=== PATIENT | female | born 1950 | race Caucasian/White ===

== ENCOUNTER 2016-05-22 12:14 | Outpatient (CLI) ==
[2016-05-22 12:51] LABS: BASOPHILS % (AUTO) 0.8 % (0.0-3.0); EOSINOPHILS # (AUTO) 0.1 K/ul (0.0-0.7); EOSINOPHILS % (AUTO) 2.7 % (0.0-7.0); HEMATOCRIT 35.6 % (37.0-47.0); HEMOGLOBIN 11.9 g/dl (12.0-16.0); IMMATURE GRANULOCYTE % (AUTO) 0.2 % (0.0-5.0); LYMPHOCYTES # (AUTO) 2.1 K/uL (0.60-3.4); LYMPHOCYTES % (AUTO) 40.3 (10.0-50.0); MEAN CORPUSCULAR HEMOGLOBIN 30.2 pg (27.0-31.0); MEAN CORPUSCULAR HGB CONC 33.4 (31.8-35.4); MEAN CORPUSCULAR VOLUME 90.4 fl (81.0-99.0); MONOCYTES # (AUTO) 0.4 K/uL (0.4-2.0); MONOCYTES % (AUTO) 8.1 (0-10); NEUTROPHILS # (AUTO) 2.5 K/ul (2.0-6.9); NEUTROPHILS % (AUTO) 47.9; PLATELET COUNT 286 10^3/uL (140-440); RED BLOOD COUNT 3.94 10^6/ul (4.20-5.40); WHITE BLOOD COUNT 5.16 K/ul (4.6-10.2)
[2016-05-22 13:00] LABS: ALBUMIN 4.1 g/dL (3.4-5.0); ALBUMIN/GLOBULIN RATIO 1.08; ANION GAP 14.8; BILIRUBIN,TOTAL 0.51 mg/dL (0.00-1.20); BILIRUBIN,URINE Negative (NEGATIVE); BUN/CREATININE RATIO 18.75; CALCIUM 9.8 mg/dL (8.2-10.2); CHOL/HDL RATIO 4.9 (4.5-5.5); CREATININE 0.8 mg/dL (0.60-1.30); KETONES,URINE Negative (NEGATIVE); LEUKOCYTE ESTERASE ,URINE 2+ (NEGATIVE); NITRITE,URINE Negative (NEGATIVE); PH,URINE 5.5 (5-9); POTASSIUM 3.8 mmol/L (3.5-5.10); PROTEIN,URINE Negative (NEGATIVE); TOTAL PROTEIN 7.9 g/dL (5.8-8.1); URINE, BLOOD Negative (NEGATIVE)
[2016-05-22 13:05] LABS: ADD URINE MICROSCOPIC YES
[2016-05-22 13:07] LABS: BACTERIA,URINE 1+ (NOT PRESENT)
== END 2016-05-22 12:15 | disposition home or self-care (01) ==
LOC: LAB 12:14
PROVIDERS: ATTEND General Practice
DX: E78.5 Hyperlipidemia, unspecified (principal); I10 Essential (primary) hypertension; R73.09 Other abnormal glucose; Z79.899 Other long term (current) drug therapy
CPT/HCPCS: 36415; 80053; 80061; 81001; 83036; 85025; 87086

== ENCOUNTER 2016-09-21 09:27 | Outpatient (CLI) | payer OTHER ==
[2016-09-21 13:20] LABS: BASOPHILS # (AUTO) 0.1 K/uL (0-0.2); EOSINOPHILS # (AUTO) 0.1 K/ul (0.0-0.7); HEMATOCRIT 36.1 % (37.0-47.0); HEMOGLOBIN 12.2 g/dl (12.0-16.0); IMMATURE GRANULOCYTE % (AUTO) 0.2 % (0.0-5.0); LYMPHOCYTES # (AUTO) 1.4 K/uL (0.60-3.4); MEAN CORPUSCULAR HEMOGLOBIN 30.7 pg (27.0-31.0); MEAN CORPUSCULAR HGB CONC 33.8 (31.8-35.4); MEAN CORPUSCULAR VOLUME 90.7 fl (81.0-99.0); MONOCYTES # (AUTO) 0.3 K/uL (0.4-2.0); MONOCYTES % (AUTO) 5.4 (0-10); NEUTROPHILS # (AUTO) 3.2 K/ul (2.0-6.9); NEUTROPHILS % (AUTO) 63.4; PLATELET COUNT 248 10^3/uL (140-440); RED BLOOD COUNT 3.98 10^6/ul (4.20-5.40); WHITE BLOOD COUNT 4.97 K/ul (4.6-10.2)
[2016-09-21 13:46] LABS: ALBUMIN 3.9 g/dL (3.4-5.0); ANION GAP 12.5; BILIRUBIN,TOTAL 0.36 mg/dL (0.00-1.20); BUN/CREATININE RATIO 20.51; CALCIUM 9.2 mg/dL (8.2-10.2); CREATININE 0.78 mg/dL (0.60-1.30); POTASSIUM 3.5 mmol/L (3.5-5.10); TOTAL PROTEIN 7.8 g/dL (5.8-8.1)
== END 2016-09-21 09:28 | disposition home or self-care (01) ==
LOC: LAB 09:27
PROVIDERS: ATTEND General Practice
DX: Z79.899 Other long term (current) drug therapy (principal)
CPT/HCPCS: 36415; 80053; 85025

== ENCOUNTER 2016-10-19 07:19 | Outpatient (CLI) | payer OTHER ==
[2016-10-19 08:15] LABS: GLUCOSE,FASTING 111 mg/dL (70-121); GTT FASTING URINE NEGATIVE (NEGATIVE)
[2016-10-19 08:46] LABS: GLUCOSE 30 MINUTE 189 mg/dL (70-121); GLUCOSE 30 MINUTE URINE NEGATIVE (NEGATIVE)
[2016-10-19 10:33] LABS: GLUCOSE 2 HR URINE NEGATIVE (NEGATIVE)
[2016-10-19 11:05] LABS: GLUCOSE 3 HOUR URINE NEGATIVE (NEGATIVE)
[2016-10-19 12:15] LABS: GLUCOSE 4 HOUR URINE NEGATIVE (NEGATIVE)
[2016-10-19 13:18] LABS: GLUCOSE 5 HOUR URINE NEGATIVE (NEGATIVE)
== END 2016-10-19 07:20 | disposition home or self-care (01) ==
LOC: LAB 07:19
PROVIDERS: ATTEND General Practice
DX: R73.03 Prediabetes (principal); Z83.3 Family history of diabetes mellitus
CPT/HCPCS: 36415; 82951; 82952

== ENCOUNTER 2017-02-25 13:01 | Outpatient (CLI) ==
[2017-02-25 13:09] LABS: BASOPHILS # (AUTO) 0.1 K/uL (0-0.2); EOSINOPHILS # (AUTO) 0.1 K/ul (0.0-0.7); HEMATOCRIT 34.9 % (37.0-47.0); HEMOGLOBIN 11.7 g/dl (12.0-16.0); IMMATURE GRANULOCYTE % (AUTO) 0.2 % (0.0-5.0); LYMPHOCYTES # (AUTO) 1.4 K/uL (0.60-3.4); LYMPHOCYTES % (AUTO) 28.8 (10.0-50.0); MEAN CORPUSCULAR HEMOGLOBIN 30.3 pg (27.0-31.0); MEAN CORPUSCULAR HGB CONC 33.5 (31.8-35.4); MEAN CORPUSCULAR VOLUME 90.4 fl (81.0-99.0); MONOCYTES # (AUTO) 0.5 K/uL (0.4-2.0); MONOCYTES % (AUTO) 10.3 (0-10); NEUTROPHILS # (AUTO) 2.9 K/ul (2.0-6.9); NEUTROPHILS % (AUTO) 57.7; PLATELET COUNT 284 10^3/uL (140-440); RED BLOOD COUNT 3.86 10^6/ul (4.20-5.40); WHITE BLOOD COUNT 4.97 K/ul (4.6-10.2)
[2017-02-25 13:13] LABS: ADD URINE MICROSCOPIC YES; BILIRUBIN,URINE Negative (NEGATIVE); KETONES,URINE Negative (NEGATIVE); LEUKOCYTE ESTERASE ,URINE 2+ (NEGATIVE); NITRITE,URINE Negative (NEGATIVE); PH,URINE 5.5 (5-9); PROTEIN,URINE Negative (NEGATIVE); URINE, BLOOD Negative (NEGATIVE)
[2017-02-25 13:17] LABS: BACTERIA,URINE 1+ (NOT PRESENT)
[2017-02-25 13:22] LABS: ALBUMIN 3.6 g/dL (3.4-5.0); ALBUMIN/GLOBULIN RATIO 0.9; ANION GAP 15.9; BILIRUBIN,TOTAL 0.3 mg/dL (0.00-1.20); BUN/CREATININE RATIO 16.43; CALCIUM 9.3 mg/dL (8.2-10.2); CHOL/HDL RATIO 4.9 (4.5-5.5); CREATININE 0.73 mg/dL (0.60-1.30); POTASSIUM 3.9 mmol/L (3.5-5.10); TOTAL PROTEIN 7.6 g/dL (5.8-8.1)
== END 2017-02-25 13:02 | disposition home or self-care (01) ==
LOC: LAB 13:01
PROVIDERS: ATTEND General Practice
DX: E78.5 Hyperlipidemia, unspecified (principal); I10 Essential (primary) hypertension; Z79.899 Other long term (current) drug therapy
CPT/HCPCS: 36415; 80053; 80061; 81001; 85025; 87086

== ENCOUNTER 2017-03-12 13:33 | Outpatient (CLI) | payer OTHER ==
--- NOTE | 2017-03-13 09:35 | MAMMO ---
EXAM: Bilateral digital screening mammogram (2-D and 3-D) History: Screening Comparison: Bilateral mammogram 02/28/2015 Findings: MLO and CC views of bilateral breasts demonstrate scattered fibroglandular breast parenchy ma. CAD was reviewed by the radiologist. Tomosynthesis was performed. Stable benign bilateral vascu lar calcifications. There are no dominant masses, no suspicious microcalcifications and no indoor landscape architect ural distortions Impression: Benign stable mammogram. Recommend followup routine screening mammography in 1 year. BIRADS 2
== END 2017-03-12 13:34 | disposition home or self-care (01) ==
LOC: RAD 13:33
PROVIDERS: ATTEND General Practice
DX: Z12.31 Encounter for screening mammogram for malignant neoplasm of breast (principal); Z80.3 Family history of malignant neoplasm of breast
CPT/HCPCS: 77067

== ENCOUNTER 2017-06-26 11:12 | Outpatient (CLI) | payer OTHER | END 2017-06-26 11:13 | disposition home or self-care (01) | LOC: LAB 11:12 | PROVIDERS: ATTEND General Practice | DX: J02.9 Acute pharyngitis, unspecified (principal); R05 Cough | CPT/HCPCS: 87651; 87804 ==

== ENCOUNTER 2017-07-01 12:36 | Outpatient (CLI) | END 2017-07-01 12:37 | disposition home or self-care (01) | LOC: LAB 12:36 | PROVIDERS: ATTEND General Practice | DX: R05 Cough (principal); R50.9 Fever, unspecified; R52 Pain, unspecified | CPT/HCPCS: 36415; 86710 ==

== ENCOUNTER 2017-07-22 09:19 | Outpatient (CLI) | END 2017-07-22 09:20 | disposition home or self-care (01) | LOC: FCC-LAB 09:19 | PROVIDERS: ATTEND General Practice | DX: E78.5 Hyperlipidemia, unspecified (principal); I10 Essential (primary) hypertension; R73.09 Other abnormal glucose; J11.1 Influenza due to unidentified influenza virus with other respiratory manifestations; Z79.899 Other long term (current) drug therapy | CPT/HCPCS: 36415; 80053; 80061; 81001; 83036; 85025; 86710; 87086 ==

== ENCOUNTER 2018-02-24 12:37 | Outpatient (CLI) | END 2018-02-24 12:38 | disposition home or self-care (01) | LOC: FCC-LAB 12:37 | PROVIDERS: ATTEND General Practice | DX: E78.5 Hyperlipidemia, unspecified (principal); I10 Essential (primary) hypertension; R73.09 Other abnormal glucose; Z79.899 Other long term (current) drug therapy | CPT/HCPCS: 36415; 80053; 80061; 81001; 83036; 85025 ==

== ENCOUNTER 2018-03-13 13:39 | Outpatient (CLI) ==
--- NOTE | 2018-03-14 10:08 | MAMMO ---
EXAM: Bilateral digital screening mammogram (2-D and 3-D) History: Screening Comparison: Bilateral mammogram 03/12/2017 Findings: MLO and C E views of bilateral breasts demonstrate scattered fibroglandular breast parench yma. CAD was reviewed by the radiologist. Tomosynthesis was performed. Stable benign bilateral vas cular calcifications. There are no dominant masses, no suspicious microcalcifications and no archite ctural distortions Impression: Benign stable mammogram. Recommend followup routine screening mammography in 1 year. BIRADS 2
== END 2018-03-13 13:40 | disposition home or self-care (01) ==
LOC: RAD 13:39
PROVIDERS: ATTEND General Practice
DX: Z12.31 Encounter for screening mammogram for malignant neoplasm of breast (principal)

== ENCOUNTER 2018-06-16 08:25 | Outpatient (CLI) | END 2018-06-16 08:26 | disposition home or self-care (01) | LOC: RHC-LAB 08:25 | PROVIDERS: ATTEND Nurse Practitioner Family | DX: R05 Cough (principal) | CPT/HCPCS: 87502 ==

== ENCOUNTER 2018-06-27 08:08 | Outpatient (CLI) | END 2018-06-27 08:09 | disposition home or self-care (01) | LOC: RHC-LAB 08:08 | PROVIDERS: ATTEND General Practice | DX: R05 Cough (principal); R73.09 Other abnormal glucose; E78.5 Hyperlipidemia, unspecified; Z79.899 Other long term (current) drug therapy | CPT/HCPCS: 36415; 80053; 80061; 81001; 85025; 86710; 87502; 87651 ==

== ENCOUNTER 2018-07-29 16:01 | Outpatient (CLI) | END 2018-07-29 16:02 | disposition home or self-care (01) | LOC: RHC-LAB 16:01 | PROVIDERS: ATTEND General Practice | DX: R30.9 Painful micturition, unspecified (principal) | CPT/HCPCS: 81001; 87086; 87186 ==

== ENCOUNTER 2018-07-29 16:47 | Outpatient (CLI) ==
--- NOTE | 2018-07-30 09:50 | DI ---
Exam: Two views of the chest. Comparison: 06/23/2007. Reason for exam: Cough. FINDINGS: No pneumothorax, pleural effusion, or focal consolidation. 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 The cardiac silhouette is not enlarged. The imaged osseous structures appear grossly unremarkable without acute fracture. Impression: No acute cardiopulmonary process.
== END 2018-07-29 16:48 | disposition home or self-care (01) ==
LOC: RAD 16:47
PROVIDERS: ATTEND General Practice
DX: R05 Cough (principal)

== ENCOUNTER 2018-08-08 12:35 | Outpatient (CLI) | END 2018-08-08 12:36 | disposition home or self-care (01) | LOC: RHC-LAB 12:35 | PROVIDERS: ATTEND General Practice | DX: R31.29 Other microscopic hematuria (principal); D64.9 Anemia, unspecified | CPT/HCPCS: 36415; 81001; 85025 ==